=== PATIENT | female | born 1965 | race Caucasian/White ===

== ENCOUNTER → 2016-08-25 | Day surgery (SDC) | payer OTHER ==
[~2016-08-25] MED LIST: BUPIVACAINE/EPINEPHRINE 0.25% 50 ML VIAL ONE; CLINDAMYCIN PHOS 600 MG/4 ML VIAL ONE; CLON.1 PO; LACTATED RINGER'S 1000 ML INJ 1,000 ML ONE; MIDAZOLAM HCL 2 MG/2 ML VIAL ONE; ONDANSETRON HCL 4 MG/2 ML VIAL IV PUSH ONE; PHEN12.5 PO; PHEN12.5 PR; PROM25SU8 PO; PROPOFOL 200 MG/20 ML AMP IV ONE; SODIUM CHLORIDE 0.9% 100 ML ADDBAG IV ONE; SULF-154 PO; Z.0.NO CURRENT MEDS
--- NOTE | 2016-08-30 14:18 | MP ---
cc: HOOD GARCÍA DATE OF SURGERY: 08/25/2016 PREOPERATIVE DIAGNOSIS Left knee lateral meniscus tear. POSTOPERATIVE DIAGNOSES Left knee lateral meniscus tear. PROCEDURE Left knee arthroscopic partial lateral meniscectomy. SURGEON Dr. Hood García ANESTHESIA General. ESTIMATED BLOOD LOSS Less than 10 cc. TOURNIQUET TIME Zero minutes. COMPLICATIONS None. JUSTIFICATION The patient is a 51-year-old female who had an injury to her left knee. She has had persistence of pain in regards to her condition with failure of clinical treatment. MRI confirmed the above-named findings. The patient was counseled as to the risks, benefits and alternatives to the above-named proposed surgical procedure and she did wish to proceed with surgery. PROCEDURE IN DETAIL Written consent was obtained. The patient was identified by name, taken to the operating room and placed supine on the operating table. General anesthesia was administered as well as 600 mg of IV clindamycin as she does have a penicillin allergy. The left thigh was carefully placed in a well-padded leg khan, the left lower extremity prepped and draped using isopropyl alcohol, Hibiclens solution and DuraPrep solution. A standard medial and lateral parapatellar arthroscopic portal was established. 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 The medial compartment was relatively free of meniscal pathology and chondromalacia. The intercondylar notch revealed the anterior and posterior cruciate ligaments to be intact. The lateral compartment revealed a very large complex tear of the lateral meniscus extending from the posterior horn to the midbody to the anterior horn. An arthroscopic biter followed by an arthroscopic shaver was introduced into the lateral compartment to perform a partial lateral meniscectomy. The meniscal rim was probed and noted to be stable after meniscectomy. There was a small area of focal grade II chondromalacia along the far lateral portion lateral femoral condyle. The shaver was introduced into the anterior patellofemoral compartment. A chondroplasty along the undersurface of the patella was performed. At the conclusion of the surgical procedure 30 cc of 0.5% Marcaine with epinephrine was injected into the knee joint. The arthroscopic portals were closed with 3-0 Prolene suture. Sterile dressing was applied. The patient tolerated the procedure well. No intraoperative complications were noted. MD MEL Jimenez/KAREN /2:26 PM /2:06 PM
== END | disposition home or self-care (01) ==
LOC: ESDC 11:58
PROVIDERS: ATTEND Orthopaedic Surgery Sports Medicine
DX: S83.272A Complex tear of lateral meniscus, current injury, left knee, initial encounter (principal)
CPT/HCPCS: 01400; 29881; J2250; J2405; J3010; J7120